=== PATIENT | male | born 1990 | race Caucasian/White ===

== ENCOUNTER 2021-02-18 14:20 | Outpatient (REF) | payer OTHER, SELFPAY ==
--- NOTE | ~2021-02-18 | US_ITS ---
EXAMINATION: US SCROTUM CLINICAL INFORMATION: Left testicle pain and lump. COMPARISON: None TECHNIQUE: A sonogram of the scrotum was performed assessing bishop-scale appearance and color Doppler flow. Spectral Doppler analysis of the arterial and venous flow were performed in the testes bilaterally. FINDINGS: RIGHT: Right testicle measures 4.5 x 2.2 x 2.9 cm, volume 15 mL. No focal testicular parenchymal lesions are visualized. Spectral Doppler analysis of the arterial and venous flow is normal in the right testis. Right epididymal head is normal in size. No right hydrocele or varicocele is seen. Right epididymal Doppler flow is normal. LEFT: Left testicle measures 4.3 x 2.1 x 3.2 cm, volume 15 mL. No focal testicular parenchymal lesions are visualized. Spectral Doppler analysis of the arterial and venous flow is normal in the left testis. Left epididymal head is normal in size. No left hydrocele is seen. Left epididymal Doppler flow is normal. There is a left varicocele. There is some thrombus seen in the left varicocele/superficial thrombophlebitis. US/US scrotum IMPRESSION: Left varicocele and superficial thrombophlebitis.
== END 2021-02-18 14:21 | disposition home or self-care (01) ==
LOC: HO.HMGCX 14:20
PROVIDERS: Visit Provider Nurse Practitioner Family
DX: N50.89 Other specified disorders of the male genital organs (principal); I86.1 Scrotal varices; I80.8 Phlebitis and thrombophlebitis of other sites
CPT/HCPCS: 76870

== ENCOUNTER 2023-08-02 10:02 | Outpatient (AMB) | payer OTHER, SELFPAY ==
--- NOTE | 2023-08-02 10:24 | MHC.OFFVIS ---
Intake Vital Signs 08/02/23 10:29 Height 6 ft Weight 250 lb BMI 33.9 Intake Visit Reasons: PSYCHIATRIST-rt hand injury-finger sprain Intake Note: Yuri 33 yr old male who is right hand dominant, presents today for a new patient visit for his W/C injury to his right middle finger from [facility] 05/30/23. States while at work he his finger were crushed in between the ramp and the ramp door. 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 Seen at [facility] where he was rX'd O.T where he attend to only 3 sessions with no improvement. Currently he is limited with ROM and tightness. Denies numbness and tingling. States he has remain out of work since [facility]. Allergies No Known Allergies [No Known Allergies*] Allergy (Verified 08/02/23 10:29) HPI PSYCHIATRIST-rt hand injury-finger sprain HPI Details 33-year-old right hand dominant male who presents in the office today, as a new patient, for an evaluation of right hand pain. The patient was seen at [facility] in regards to a right hand work injury which occurred on 05/30/2023. He states the back ramp fell on the middle, ring, and little digits. He confirms attending occupational therapy, with no relief. He states he is unable to make a closed fist due to crushing it at work. 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 He states at the end of the day he is unable to move the fingers. He denies numbness or tingling in the right hand. This is a work related injury. 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 Onset 05/30/23 [facility] Medical History (Updated 08/02/23 @ 10:45 by Edwige Cadet) Obesity (BMI 30-39.9) Nephrolithiasis Exertional dyspnea Mixed hyperlipidemia Hypercalcinuria Bilateral nephrolithiasis Right knee pain PTSD (post-traumatic stress disorder) Surgical History (Reviewed 08/02/23 @ 10:29 by Tuyet Olivares [facility]) History of kidney stones History of inguinal hernia repair Family History Father No problems noted. Mother No problems noted. Brother No problems noted. Brother No problems noted. Son No problems noted. Son No problems noted. 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 No ecchymosis, erythema, or edema. No tenderness to palpation over all anatomical structures of the middle finger. Able to perform full finger flexion, extension, abduction, adduction, finger cross, okay sign, and thumbs up without deficit. Able to make a closed fist. Sensation intact. Capillary refill is brisk. Radial pulse intact. Assessment & Plan Assessment & Plan (1) Pain of right middle finger: Code(s): M79.644 - Pain in right finger(s) Plan Mr. Avila is a 33-year-old right hand dominant male who presents in the office today, as a new patient, for an evaluation of right hand pain. The patient was seen at [facility] in regards to a right hand work injury which occurred on 05/30/2023. He states the back ramp fell on the middle, ring, and little digits. He confirms attending occupational therapy, with no relief. He states he is unable to make a closed fist due to crushing it at work. 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 He states at the end of the day he is unable to move the fingers. He denies numbness or tingling in the right hand. This is a work related injury. 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 I discussed with the patient about attending occupational therapy for more sessions to continue to work on [employer]. He has agreed to attend. 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 Follow up will be PRN, or sooner if needed. X-rays of the right hand which were obtained while in the office today and were reviewed by me, Laurita Fox PA-C, revealed no evidence of acute fracture or dislocation. Orders: Orders XR hand RT min 3V Today M79.643 - Pain in unspecified hand Patient Instructions: Scribed for Laurita Fox PA-C by Edwige Cadet, medical sonographer, on 08/02/2023 at 10:41 am, EST. Coding Level of Care Code New Pt Level 4 (09607) Diagnoses Pain of right middle finger M79.644
[2023-08-02 10:29] VITALS: BMI 33.9
== END 2023-08-02 10:43 | disposition home or self-care (01) ==
PROVIDERS: PCP Internal Medicine; Visit Provider Physician Assistant
DX: M79.644 Pain in right finger(s) (principal); W23.0XXA Caught, crushed, jammed, or pinched between moving objects, initial encounter; Y99.0 Civilian activity done for income or pay; Z04.2 Encounter for examination and observation following work accident
CPT/HCPCS: 99204

== ENCOUNTER 2023-08-02 10:02 | Outpatient (REF) | payer OTHER, BC, SELFPAY ==
--- NOTE | ~2023-08-02 | XR_ITS ---
EXAMINATION: XR HAND, RIGHT CLINICAL INFORMATION: Reason for Exam M79.643 - Pain in unspecified hand COMPARISON: None available. TECHNIQUE: PA, lateral, and oblique views of the right hand. FINDINGS: The bones and soft tissues are normal. No fracture. Alignment is anatomic. Joint spaces are maintained. No erosions or soft tissue calcifications. XR/XR hand RT min 3V IMPRESSION: Normal right hand.
== END 2023-08-02 10:03 | disposition home or self-care (01) ==
LOC: HO.HOSX 10:02
PROVIDERS: PCP Internal Medicine; Visit Provider Physician Assistant
DX: M79.644 Pain in right finger(s) (principal)
CPT/HCPCS: 73130; 99202

== ENCOUNTER 2025-05-20 16:30 | Emergency (ER) | payer OTHER, SELFPAY ==
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
[2025-05-20 16:43] VITALS: BP 159/91; PULSE 118; RESP 18; O2SAT 97; BMI 36.9
[2025-05-20 17:15] LABS: MANUAL DIFF FLAG NO
[2025-05-20 17:22] LABS: INTERNATIONAL NORM RATIO 1.0 (0.9-1.1); Prothrombin Time 11.7 SEC (10.9-12.4)
[2025-05-20 17:23] LABS: Hematocrit 45.2 % (42.0-52.0); Hemoglobin 15.5 g/dl (14.0-18.0); Imm Gran Abs Auto 0.09 X10*3/uL (0.00-0.03); Imm Gran Pct Auto 0.6 % (0.0-0.4); Lymphocytes Absolute Auto 1.4 X10*3/uL (1.2-4.9); Mean Corpuscular HGB Conc 34.3 g/dl (31.0-36.0); Mean Corpuscular Hemoglobin 28.7 pg (27.0-33.0); Mean Corpuscular Volume 83.7 fL (80.0-98.0); NRBC Abs Auto 0.000 X10*3/uL (0.0-0.012); NRBC Pct Auto 0.0 /100WBC (0.0-0.2); Platelet Count 281 X10*3/uL (160-400); Red Blood Count 5.40 X10*6/uL (4.60-5.80); White Blood Count 14.7 X10*3/uL (4.8-10.8)
[2025-05-20 17:32] LABS: Alanine Aminotransferase 25 U/L (0-40); Albumin Level 4.7 g/dL (3.5-5.0); Alkaline Phosphatase 95 U/L (39-117); Anion Gap 13 (12-20); Aspartate Amino Transferase 18 U/L (5-37); Blood Urea Nitrogen 13 mg/dL (9-16); Calcium 9.2 mg/dL (8.4-10.2); Carbon Dioxide 21 mmol/L (22-29); Chloride 108 mmol/L (96-108); Creatinine Clr Calc Pharmacy 139.8; Estimated Glomerular Filt Rate > 60; Magnesium 2.1 mg/dL (1.6-2.6); Potassium 4.0 mmol/L (3.3-5.1); Sodium 138 mmol/L (135-145); Total Protein 7.6 g/dL (6.5-8.0)
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
[2025-05-20] MEDS: Diphth,Pertus(ACell),Tet Adult 0.5 ML SYRINGE IM (20:25)
[2025-05-20 21:03] VITALS: BP 124/80; PULSE 84; RESP 18; TEMP 36.8; O2SAT 98
== END 2025-05-20 21:04 | disposition home or self-care (01) ==
PROVIDERS: Physician Assistant; Emergency Provider Emergency Medicine
DX: S01.01XA Laceration without foreign body of scalp, initial encounter (principal); R51.9 Headache, unspecified; R11.0 Nausea; R10.22 Pelvic and perineal pain left side; M54.2 Cervicalgia; X99.9XXA Assault by unspecified sharp object, initial encounter; Y93.9 Activity, unspecified; Y92.9 Unspecified place or not applicable; Y99.8 Other external cause status; Z79.899 Other long term (current) drug therapy; Z23 Encounter for immunization
CPT/HCPCS: 12001; 36415; 70450; 72125; 80053; 83735; 85025; 85610; 90471; 90715; 96372; 99284; J1885

== ENCOUNTER → 2025-05-20 16:40 | Outpatient (BNV) | payer OTHER, SELFPAY | PROVIDERS: Visit Provider Radiology Diagnostic Radiology | DX: M54.2 Cervicalgia (principal); S09.90XA Unspecified injury of head, initial encounter; Y09 Assault by unspecified means | CPT/HCPCS: 70450; 72125 ==

== ENCOUNTER 2025-05-22 15:23 | Emergency (ER) | payer OTHER, SELFPAY ==
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
[2025-05-22 15:43] VITALS: BP 143/75; PULSE 92; RESP 20; TEMP 37; O2SAT 96; BMI 32.3
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
[2025-05-22 16:02] LABS: MANUAL DIFF FLAG NO
[2025-05-22 16:03] LABS: Hematocrit 45.5 % (42.0-52.0); Hemoglobin 15.5 g/dl (14.0-18.0); Imm Gran Abs Auto 0.04 X10*3/uL (0.00-0.03); Imm Gran Pct Auto 0.4 % (0.0-0.4); Lymphocytes Absolute Auto 2.7 X10*3/uL (1.2-4.9); Mean Corpuscular HGB Conc 34.1 g/dl (31.0-36.0); Mean Corpuscular Hemoglobin 28.4 pg (27.0-33.0); Mean Corpuscular Volume 83.3 fL (80.0-98.0); NRBC Abs Auto 0.000 X10*3/uL (0.0-0.012); NRBC Pct Auto 0.0 /100WBC (0.0-0.2); Platelet Count 274 X10*3/uL (160-400); Red Blood Count 5.46 X10*6/uL (4.60-5.80); White Blood Count 10.0 X10*3/uL (4.8-10.8)
[2025-05-22 16:20] LABS: Alanine Aminotransferase 24 U/L (0-40); Albumin Level 4.7 g/dL (3.5-5.0); Alkaline Phosphatase 94 U/L (39-117); Anion Gap 12 (12-20); Aspartate Amino Transferase 18 U/L (5-37); Blood Urea Nitrogen 12 mg/dL (9-16); Calcium 9.1 mg/dL (8.4-10.2); Carbon Dioxide 25 mmol/L (22-29); Chloride 107 mmol/L (96-108); Creatinine Clr Calc Pharmacy 129.4; Estimated Glomerular Filt Rate > 60; Potassium 4.1 mmol/L (3.3-5.1); Sodium 140 mmol/L (135-145); Total Protein 7.6 g/dL (6.5-8.0)
[2025-05-22 17:47] VITALS: BP 143/75; PULSE 92; RESP 20; TEMP 37; O2SAT 96
== END 2025-05-22 17:48 | disposition home or self-care (01) ==
PROVIDERS: Physician Assistant; Emergency Provider Student in an Organized Health Care Education/Training Program
DX: S06.0X0A Concussion without loss of consciousness, initial encounter (principal); R42 Dizziness and giddiness; R11.2 Nausea with vomiting, unspecified; R51.9 Headache, unspecified; X99.9XXA Assault by unspecified sharp object, initial encounter; Y93.9 Activity, unspecified; Y92.9 Unspecified place or not applicable; Y99.8 Other external cause status; Z79.899 Other long term (current) drug therapy
CPT/HCPCS: 36415; 70450; 80053; 85025; 99282; 99284

== ENCOUNTER → 2025-05-22 15:49 | Outpatient (BNV) | payer OTHER, SELFPAY | PROVIDERS: Visit Provider Radiology Diagnostic Radiology | DX: S09.90XA Unspecified injury of head, initial encounter (principal); R11.2 Nausea with vomiting, unspecified | CPT/HCPCS: 70450 ==

== ENCOUNTER 2025-05-29 15:12 | Emergency (ER) | payer SELFPAY ==
[2025-05-29 15:31] VITALS: BP 150/90; PULSE 86; RESP 18; TEMP 36.6; O2SAT 99; BMI 32.5
--- NOTE | 2025-05-29 15:34 | ED.GENADULT ---
HPI - General Adult General Chief complaint: Wound/Laceration Stated complaint: Suture removal Time Seen by Provider: 05/29/25 15:33 Source: patient, RN notes reviewed and old records reviewed Mode of arrival: ambulatory Limitations: no limitations History of Present Illness ED Provider: Kings GEORGE narrative: Patient is a 35y/o male presenting to the emergency department for removal of bijal placed to scalp on 05/22. Denies any complications or concerns, no drainage. No pain. MD complaint: staple removal Related Data Home Medications ?Medication ?Instructions ?Recorded ?Confirmed escitalopram oxalate 10 mg tablet 10 mg PO DAILY 08/02/23 (Lexapro) Previous Rx's ?Medication ?Instructions ?Recorded [id number]-oespqmdsxdswm-yhkfflji 250 1 tab PO Q6H PRN headache #10 tabs 05/20/25 mg-250 mg-65 mg tablet (Excedrin Migraine) ondansetron 4 mg disintegrating 4 mg PO Q8H PRN nausea and 05/20/25 tablet vomiting #10 tabs Allergies Allergy/AdvReac Type Severity Reaction Status Date / Time No Known Allergies (No Known Allergy Verified 05/29/25 15:34 Allergies*) Review of Systems Review of Systems: as per HPI Yes all other systems are reviewed and are negative Constitutional: Constitutional: Reports as per HPI [facility] Past Medical History Medical History Obesity (BMI 30-39.9) Nephrolithiasis Exertional dyspnea Mixed hyperlipidemia Hypercalcinuria Bilateral nephrolithiasis Right knee pain PTSD (post-traumatic stress disorder) Surgical History History of kidney stones History of inguinal hernia repair Family History Family History Father No problems noted. Mother No problems noted. Brother No problems noted. Brother No problems noted. Son No problems noted. Son No problems noted. 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 Blood pressure normal. Heart rate normal. Respiratory rate normal. Temperature normal. Oxygen saturation normal. Const General: cooperative, healthy appearing and no acute distress Orientation/consciousness: oriented to person, oriented to place, oriented to time and patient oriented x3 Limitations: no limitations [facility] Head: Yes normocephalic, Yes atraumatic and Yes other (2 bijal to superior scalp, wound appears well healed) Ears: external ears normal General nose exam: Normal external nose present Face and sinus: Yes face symmetric Mouth: oropharynx normal and moist mucous membranes Throat: Yes uvula midline Eyes Pupils: Equal, round and reactive pupils present Neck Neck: Yes normal visual inspection and Yes supple Resp Effort & Inspection: normal respiratory effort and able to speak in complete sentences Auscultation: clear to auscultation bilaterally Cardio Rate: regular rate Rhythm: regular rhythm Heart sounds: S1 normal heart sound present and S2 normal heart sound present Skin General skin exam: elasticity normal and turgor normal Neuro General: oriented to person, oriented to place, oriented to time, patient oriented x3, moves all extremities, no focal motor deficits and CN's II-XI intact bilaterally Cranial nerves: Yes Equal, round and reactive pupils present Cognition (Neuro): normal cognition Extrem General: Yes full ROM, Yes no pedal edema and Yes no calf tenderness Psych Mental Status: mental status grossly normal Affect: normal affect Thought process: Normal thought process present Medical Decision Making Medical Decision Making [facility] Narrative: Patient is a 35y/o male presenting to the emergency department for removal of bijal placed to scalp on 05/22. On exam patient is awake, A+Ox3, VS WNL, afebrile, normal neurological exam without focal deficits, physical exam findings as above. Given reported symptoms and physical exam findings, initial differential includes but is not limited to staple removal, wound check. Two bijal removed without difficulty with success. Patient tolerated well, no complications. Wound care instructions and return precautions discussed. Patient verbalized understanding of and agreement with plan. Differential Diagnosis Differential Diagnoses: The differential diagnosis associated with the presentation includes as per [facility] External Record Review External record reviewed: Inpatient record, Office record and Outpatient record Discharge Plan Discharge Clinical Impression: Encounter for removal of bijal Patient Disposition: Home, Self-Care Additional Instructions: You were seen in the emergency department today for staple removal. Your wound appears to be healing well. Please keep the area surrounding the wound clean and dry. Do not submerge in water until fully healed. Please continue to assess the wound daily. Keep the area out of direct sunlight for the next 6 months to help prevent scarring. If you develop fever, redness, swelling at the site of your laceration, or thick yellow drainage please come back to the ER for a wound check. Prescriptions: No Action ondansetron 4 mg tablet,disintegrating 4 mg PO Q8H PRN (Reason: nausea and vomiting) Qty: 10 0RF btxsgxe-ludmbhumbjmqb-ddjhhper [Excedrin Migraine] 250-250-65 mg tablet 1 tab PO Q6H PRN (Reason: headache) Qty: 10 0RF escitalopram oxalate [Lexapro] 10 mg tablet 10 mg PO DAILY Print Language: [place] Citizen
[2025-05-29 15:53] VITALS: BP 150/90; PULSE 86; RESP 18; TEMP 36.6; O2SAT 99
== END 2025-05-29 15:54 | disposition home or self-care (01) ==
PROVIDERS: Emergency Provider Emergency Medicine
DX: S01.00XD Unspecified open wound of scalp, subsequent encounter (principal); Z48.02 Encounter for removal of sutures
CPT/HCPCS: 99282